=== PATIENT | female | born 1935 | race Caucasian/White ===

== ENCOUNTER → 2018-02-24 12:28 | Outpatient (CLI) | payer MEDICARE, OTHER, SELFPAY ==
[2018-02-24 14:00] LABS: Cholesterol 129 mg/dL (140-199); HDL Cholesterol 52 mg/dL (40-60); LDL Cholesterol Calculated 59 mg/dL (<100); Magnesium 2.1 mg/dL (1.6-2.3); Triglycerides 90 mg/dL (35-150)
== END ==
PROVIDERS: PCP Naturopath; Visit Provider Internal Medicine Cardiovascular Disease
DX: I10 Essential (primary) hypertension (principal); R00.2 Palpitations; I48.1 Persistent atrial fibrillation
CPT/HCPCS: 36415; 80061; 83735